=== PATIENT | male | born 1940 | race Caucasian/White ===

== ENCOUNTER 2018-06-22 07:45 | Outpatient (CLI) | payer MEDICARE, OTHER ==
--- NOTE | 2018-06-22 10:32 | XRAY Report ---
Reason: PAIN IN LEFT HIP, PAIN IN LEFT KNEE Procedure Date: 06/22/2018 Accession Number: [id number] / [id number] Procedure: XR - Knee 3 View LT CPT Code: FULL RESULT: EXAM: LEFT KNEE RADIOGRAPHY EXAM DATE: 06/22/2018 08:37 AM. CLINICAL HISTORY: Pain in left hip, pain in left knee. COMPARISON: None. TECHNIQUE: 2 views. FINDINGS: Bones: Normal. No fractures or bone lesions. Joints: Mild medial weightbearing compartment joint space narrowing. Soft Tissues: Vascular calcifications at the level of the canal. IMPRESSION: Peripheral arterial disease and mild degenerative changes. RADIA
--- NOTE | 2018-06-22 10:33 | XRAY Report ---
Reason: PAIN IN LEFT HIP, PAIN IN LEFT KNEE Procedure Date: 06/22/2018 Accession Number: [id number] / [id number] Procedure: XR - Hips 2V BILAT CPT Code: FULL RESULT: EXAM: BILATERAL HIP RADIOGRAPHY EXAM DATE: 06/22/2018 08:37 AM. CLINICAL HISTORY: Pain in left hip, pain in left knee. COMPARISON: None. TECHNIQUE: 2 views each. FINDINGS: Bones: Normal. No fractures or bone lesion. Right Hip: Status post right total hip arthroplasty without evidence of hardware failure. Left Hip: Moderate joint space narrowing. Soft Tissues: Vascular calcifications. Surgical clips projecting over the pelvis. IMPRESSION: At least moderate degenerative changes of the left femoral acetabular joint. RADIA
== END 2018-06-22 07:46 | disposition home or self-care (01) ==
LOC: DI 07:45
PROVIDERS: ATTEND Registered Nurse
DX: M16.12 Unilateral primary osteoarthritis, left hip (principal); M17.12 Unilateral primary osteoarthritis, left knee; I73.9 Peripheral vascular disease, unspecified; Z96.641 Presence of right artificial hip joint
CPT/HCPCS: 73521

== ENCOUNTER 2019-02-16 10:01 | Emergency (ER) | payer MEDICARE, OTHER ==
--- NOTE | 2019-02-16 11:18 | ED Physician Documentation ---
PD HPI SKIN - Stated complaint Stated Complaint: RASH - Chief complaint Chief Complaint: General - History obtained from History obtained from: Patient - History of Present Illness Timing - onset: How many days ago (9-10) Timing - duration: Days (9-10) Timing - details: Gradual onset, Still present Location: Chest, Back (started with thoracic back pain left side just after Thanksgiving and has increased steadily. Noted left chest pain past couple days and today having blistered patchy rash in the area.) Quality / character: Itchy, Painful, Burning, Vesicular Associated symptoms: Myalgias. No: Fever, Headache, N/V/D Contributing factors: No: Exposed to food, Exposed to soap / lotion, Recent illness Similar symptoms before: Has not had sx before Review of Systems Constitutional: reports: Myalgias. denies: Fever, Chills Nose: denies: Rhinorrhea / runny nose, Congestion Throat: denies: Sore throat Respiratory: denies: Cough GI: denies: Nausea, Vomiting, Diarrhea Musculoskeletal: reports: Back pain. denies: Neck pain Neurologic: denies: Altered mental status, Headache PD PAST MEDICAL HISTORY - Past Medical History Cardiovascular: Hypertension Respiratory: None Neuro: None Endocrine/Autoimmune: None - Present Medications Home Medications: Ambulatory Orders Medication Instructions Recorded Confirmed Amitriptyline [Elavil] 25 mg PO HS #30 tablet 02/16/19 Lidocaine Patch 5% [Lidoderm Patch] 1 patch TOP DAILY PRN #10 patch 02/16/19 Valacyclovir HCl [Valacyclovir] 1,000 mg PO TID #21 tablet 02/16/19 dexAMETHasone [Decadron] 4 mg PO DAILY #7 tablet 02/16/19 - Allergies Allergies/Adverse Reactions: Allergies Allergy/AdvReac Type Severity Reaction Status Date / Time No Known Drug Allergies Allergy Verified 02/16/19 10:11 - Living Situation Living Situation: reports: With spouse/s.o. Living Arrangement: reports: At home PD ED PE NORMAL - Vitals Vital signs reviewed: Yes - General General: Alert and oriented X 3, No acute distress, Well developed/nourished (d) - HEENT HEENT: Pharynx benign - Neck Neck: Supple, no meningeal sign, No adenopathy - Cardiac Cardiac: RRR, No murmur - Respiratory Respiratory: Clear bilaterally - Abdomen Abdomen: Soft, Non tender - Derm Derm: Normal color, Warm and dry, Other (left thoracic back at T5 level wrapping around to anterior chest just below nipple level, with skin tenderness, patchy vesicular rash, that demarcates in a band and stops at midline sternal. ) - Neuro Neuro: Alert and oriented X 3, No motor deficit, Normal speech Results - Vitals Vitals: Oxygen O2 Source Room air Departure - Departure Disposition: 01 Home, Self Care Clinical Impression: Shingles rash Qualifiers: Herpes zoster complications: without complications Qualified Code(s): B02.9 - Zoster without complications Condition: Stable Record reviewed to determine appropriate education?: Yes Instructions: ED Shingles Follow-Up: Nita Samayoa ARNP [Primary Care Provider] - Prescriptions: Amitriptyline [Elavil] 25 mg PO HS #30 tablet dexAMETHasone [Decadron] 4 mg PO DAILY #7 tablet Lidocaine Patch 5% [Lidoderm Patch] 1 patch TOP DAILY PRN #10 patch PRN Reason: pain Valacyclovir HCl [Valacyclovir] 1,000 mg PO TID #21 tablet Comments: You can use topical medication to help with the pain such as lidocaine patches or gel. Tylenol or ibuprofen if needed for pains. This looks like shingles and we will treat her with valacyclovir antiviral medications for a week and also Decadron steroid to decrease inflammation of the nerve for a week as well. Also take amitriptyline nightly for the next month to reduce the irritation of the nerve. You can discontinue use of this sooner if your pain is gone away during that time. Discharge Date/Time: 02/16/19 12:07
[2019-02-16] MEDS ORDERED: DEXAMETHASONE 10 MG/ML VIAL PO STA (11:50)
[2019-02-16] MEDS ORDERED: CHERRY SYRUP 10 ML UDC PO ONE (11:50)
[2019-02-16 12:06] VITALS: BP 115/65
== END 2019-02-16 12:07 | disposition home or self-care (01) ==
LOC: ED 10:01
DX: B02.9 Zoster without complications (principal); I10 Essential (primary) hypertension
CPT/HCPCS: 99284; A9270

== ENCOUNTER 2019-05-20 09:19 | Outpatient (CLI) | payer MEDICARE, OTHER ==
[2019-05-20 10:01] LABS: HB2 TOTAL 10.6 g/dL; HEMOGLOBIN A1C 0.3 g/dL; HEMOGLOBIN A1C % 4.7 % (4.6-6.2)
[2019-05-20 10:05] LABS: ALBUMIN 4.1 g/dL (3.2-5.5); BILIRUBIN,DIRECT 0.1 mg/dL (0.1-0.5); TOTAL PROTEIN 6.8 g/dL (6.7-8.2)
== END 2019-05-20 09:20 | disposition home or self-care (01) ==
LOC: LAB 09:19
PROVIDERS: ATTEND Registered Nurse
DX: R79.0 Abnormal level of blood mineral (principal); R73.09 Other abnormal glucose
CPT/HCPCS: 36415; 80076; 82947; 83036; 83540; 84466

== ENCOUNTER 2019-06-17 09:36 | Outpatient (CLI) | payer MEDICARE, OTHER | END 2019-06-17 09:37 | disposition home or self-care (01) | LOC: LAB 09:36 | PROVIDERS: ATTEND Registered Nurse | DX: R73.09 Other abnormal glucose (principal) | CPT/HCPCS: 36415; 82947 ==

== ENCOUNTER 2019-09-02 11:49 | Outpatient (CLI) | payer MEDICARE, OTHER ==
[2019-09-02 12:42] LABS: BASOPHILS % (AUTO) 0.4 %; EOSINOPHILS % (AUTO) 0.1 %; HGB - HEMOGLOBIN 7.8 g/dL (14.0-18.0); LYMPHOCYTES % (AUTO) 19.4 %; MEAN CORPUSCULAR HGB CONC 35.9 g/dL (32.0-36.0); MEAN CORPUSCULAR VOLUME 102.8 fL (80.0-94.0); MEAN PLATELET VOLUME 9.7 fL (7.4-11.4); MONOCYTES % (AUTO) 12.8 %; NEUTROPHILS % (AUTO) 66.5 %; PLT - PLATELET COUNT 260 10^3/uL (130-450); RED BLOOD COUNT 2.11 10^6/uL (4.70-6.10); WHITE BLOOD COUNT 8.5 x10^3/uL (4.8-10.8)
[2019-09-02 12:49] LABS: ABNORMAL LYMPHS % (MANUAL) 0 %
[2019-09-02 13:00] LABS: ALBUMIN 3.9 g/dL (3.2-5.5); ALBUMIN/GLOBULIN RATIO 1.2 (1.0-2.2); CALCIUM 9.2 mg/dL (8.5-10.3); CREATININE 0.9 mg/dL (0.6-1.2); CRP - C-REACTIVE PROTEIN 6.1 mg/dL (0-1.0); TOTAL PROTEIN 7.2 g/dL (6.7-8.2)
--- NOTE | 2019-09-02 13:12 | XRAY Report ---
PROCEDURE: Chest 2 View X-Ray INDICATIONS: LAB DRAW, FEVER, UNSPECIFIED TECHNIQUE: 2 view(s) of the chest. COMPARISON: 01/18/2016. FINDINGS: Surgical changes and devices: None. Lungs and pleura: No pleural effusions or pneumothorax. Lungs are clear. Mediastinum: Mediastinal contours are normal. Heart size is normal. Bones and chest wall: No suspicious bony abnormalities. Soft tissues appear unremarkable. IMPRESSION: No acute cardiopulmonary pathology. Reviewed by: Kuldip Garcia MD on 09/02/2019 1:11 PM PDT Approved by: Kuldip Garcia MD on 09/02/2019 1:11 PM PDT Station ID: [id number]
[2019-09-02 14:39] LABS: BAND NEUTROPHILS % (MANUAL) 3 %; DIFFERENTIAL COMMENT MANUAL DIFFERENTIAL; LYMPHOCYTES # (MANUAL) 1.7 10^3/uL (1.5-3.5); LYMPHOCYTES % (MANUAL) 12 %; MONOCYTES # (MANUAL) 1.3 10^3/uL (0.0-1.0); PLATELET MORPHOLOGY RARE GIANT PLATELETS (NORMAL); RBC MORPHOLOGY (MULTIPLE) 2+ ANISOCYTOSIS (NORMAL)
[2019-09-02 18:36] LABS: RHEUMATOID FACTOR NEGATIVE (Negative)
[2019-09-04 12:34] LABS: ANA SCREEN NEGATIVE (NEGATIVE)
== END 2019-09-02 11:50 | disposition home or self-care (01) ==
LOC: LAB 11:49 → DI 11:50
PROVIDERS: ATTEND Registered Nurse
DX: R50.9 Fever, unspecified (principal); I10 Essential (primary) hypertension; R51 Headache
CPT/HCPCS: 36415; 71046; 80053; 82550; 83615; 85025; 85651; 86038; 86140; 86430; 87040

== ENCOUNTER 2019-09-06 15:00 | Outpatient (CLI) | payer MEDICARE, OTHER | END 2019-09-06 15:01 | disposition home or self-care (01) | LOC: LAB 15:00 | PROVIDERS: ATTEND Registered Nurse | DX: Z01.818 Encounter for other preprocedural examination (principal); M31.6 Other giant cell arteritis; Z20.828 Contact with and (suspected) exposure to other viral communicable diseases | CPT/HCPCS: 81025; 81599; 86850; 86900; 86901 ==

== ENCOUNTER 2019-09-09 06:59 | Day surgery (SDC) | payer MEDICARE, OTHER ==
[2019-09-09] MEDS ORDERED: CEFAZOLIN SODIUM IN 0.9 % NACL 2 GM/100 ML BAG IV ONE (07:16)
[2019-09-09] MEDS ORDERED: LACTATED RINGERS 1,000 ML IV ONE (07:31)
--- NOTE | 2019-09-09 07:32 | ANESTHESIA ---
Pre-Anesthesia VS, & Labs - Diagnosis temporal arteritis - Procedure temporaL artery biopsy Vital Signs: Temp Pulse Resp BP Pulse Ox 36.1 C L 78 18 143/68 H 99 09/09/19 07:10 09/09/19 07:10 09/09/19 07:10 09/09/19 07:10 09/09/19 07:10 Height 6 ft Weight (kg) 69 kg Body Mass Index 27.6 - NPO >8 hours - Lab Results Current Lab Results: Laboratory Tests 09/09/19 07:26: POC Whole Bld Glucose 80 Home Medications and Allergies Home Medications: Ambulatory Orders Amlodipine Besylate 5 mg PO DAILY 09/06/19 Atorvastatin Calcium 10 mg PO QPM 09/06/19 Lisinopril [Zestril] 40 mg PO DAILY 09/06/19 Metformin HCl [Glucophage Xr] 500 mg PO BID 09/06/19 predniSONE [Prednisone] 1 mg PO DAILY 09/06/19 Cefuroxime Axetil [Cefuroxime] 500 mg PO BID 09/09/19 Amlodipine Besylate 5 mg PO DAILY 09/06/19 Atorvastatin Calcium 10 mg PO QPM 09/06/19 Lisinopril [Zestril] 40 mg PO DAILY 09/06/19 Metformin HCl [Glucophage Xr] 500 mg PO BID 09/06/19 predniSONE [Prednisone] 1 mg PO DAILY 09/06/19 Cefuroxime Axetil [Cefuroxime] 500 mg PO BID 09/09/19 Allergies/Adverse Reactions: Allergies Allergy/AdvReac Type Severity Reaction Status Date / Time No Known Drug Allergies Allergy Verified 07/15/19 11:07 Anes History & Medical History - Anesthetic History Anesthesia Complications: reports: No previous complications Family history of Anesthesia Complications: Denies Family history of Malignant Hyperthermia: Denies - Medical History Cardiovascular: reports: Hypertension, Arrhythmia Pulmonary: reports: None Gastrointestinal: reports: None Urinary: reports: None, Other Neuro: reports: None Musculoskeletal: reports: None Endocrine/Autoimmune: reports: Type 2 diabetes Blood Disorders: reports: None Skin: reports: Eczema, Other Smoking Status: Never smoker Psychosocial: reports: No issues indicated - Surgical History General: Colonoscopy Urologic: Prostatic surgery Orthopedic: Hip replacement, Other Exam General: Alert, Oriented x3, Cooperative, No acute distress Dental: WNL Mouth Openin Fingerbreadth Mallampati classification: II Thyromental Distance: 4-6 cm Respiratory: Lungs clear, Normal breath sounds, No respiratory distress, No accessory muscle use Cardiovascular: Regular rate, Normal S1, Normal S2, No murmurs Abdomen: Normal bowel sounds, Soft, No tenderness, No hepatospenomegaly, No masses Extremities: No clubbing, No cyanosis, No edema, Normal pulses, No tenderness/swelling Neurological: Normal gait, Normal speech, Strength at 5/5 X4 ext, Normal tone, Sensation intact, Cranial nerves 3-12 NL, Reflexes 2+ Mental/Cognitive Status: Alert/Oriented X3, Normal for patient Cognitive Status: Within normal limits Plan Anesthesia Type: MAC Consent for Procedure(s) Verified and Reviewed: Yes Code Status: Attempt Resuscitation ASA classification: 2-Mild systemic disease Is this case an emergency?: No
[2019-09-09] MEDS ORDERED: BACITRACIN ZINC OINT 1 PACKET TOP ONE ×2 (08:51→09:15)
[2019-09-09] MEDS ORDERED: BUPIVACAINE 0.5% PF 30 ML VIAL ONE (08:51)
[2019-09-09] MEDS ORDERED: LIDOCAINE 1%-EPI 1:100000 20 ML MDV ONE (08:51)
[2019-09-09] MEDS ORDERED: LIDOCAINE 1%-EPI 1:100000 30 ML MDV SUBQ ONE (09:15)
[2019-09-09] MEDS ORDERED: BUPIVACAINE 0.5%-EPI 1:200000 PF 30 ML VIAL SUBQ ONE (09:15)
[2019-09-09] MEDS ORDERED: MIDAZOLAM 2 MG/2 ML VIAL IVP ONE (09:22)
[2019-09-09] MEDS ORDERED: LIDOCAINE-MPF 2% 5 ML VIAL IM ONE (09:22)
[2019-09-09] MEDS ORDERED: PROPOFOL 200 MG/20 ML VIAL IVP ONE (09:22)
--- NOTE | 2019-09-09 09:56 | OPERATIVE REPORT ---
Operative Report - General Procedure Date: 09/09/19 Planned Procedure: Left temporal artery biopsy Pre-Op Diagnosis: Temporal headache and elevated sedimentation rate Procedure Performed: Left temporal artery biopsy Post Op Diagnosis: Temporal headache and elevated sedimentation rate - Procedure Note Primary Surgeon: Lisa Anesthesia Provider: PRINCESS Smith Anesthesia Technique: Local, MAC Pathology: Segment of left temporal artery to pathology in formalin Estimated Blood Loss (mL): 5 Findings: Thickened artery with surrounding inflammatory reaction Complications: None apparent - Other Other Information/Narrative: After obtaining informed consent, the patient is brought to the operating room and placed in the supine position on the examination table. Following sedation with monitored anesthesia care, the left temporal region was prepped and draped in the standard surgical fashion. A timeout was held per scope protocol. All elements of the surgical safety checklist were followed before, during, and after the procedure. We began the procedure by mapping the location of the temporal artery using palpation and as well as the Doppler ultrasound device. We then anesthetized the skin on either side of the artery with a mixture of local anesthetics. An incision was created directly over the artery and carried down to the visible surface of the vessel. The vessel was then carefully dissected free from surrounding tissue. It was notably thickened and enlarged with an inflammatory reaction involving the surrounding tissue. It was clipped proximally and distal ly and a 1.5 cm segment of the artery removed. The segment was passed from the table. The wound was checked for hemostasis. It was irrigated with saline solution and then closed with Monocryl sutures. All sponge, needle, and instrument counts were correct at the conclusion of the case. The patient was allowed awaken from anesthesia without difficulty and taken to the postanesthesia care unit in good condition.
[2019-09-09 10:34] VITALS: BP 120/51
== END 2019-09-09 07:00 | disposition home or self-care (01) ==
LOC: SDS 06:59
PROVIDERS: ATTEND Surgery
PROC: 03BT0ZX Excision of Left Temporal Artery, Open Approach, Diagnostic (ICD-10-PCS; principal; 2019-09-09 08:45)
DX: R51 Headache (principal); H53.9 Unspecified visual disturbance; R53.83 Other fatigue; R63.4 Abnormal weight loss; Z68.26 Body mass index [BMI] 26.0-26.9, adult; D46.9 Myelodysplastic syndrome, unspecified; I10 Essential (primary) hypertension; E11.9 Type 2 diabetes mellitus without complications; H91.90 Unspecified hearing loss, unspecified ear; H25.10 Age-related nuclear cataract, unspecified eye; H52.209 Unspecified astigmatism, unspecified eye; E78.5 Hyperlipidemia, unspecified
CPT/HCPCS: 37609; A9270; J0690; J7120

== ENCOUNTER 2019-12-16 09:26 | Outpatient (CLI) | payer MEDICARE, OTHER ==
[2019-12-16 10:49] LABS: CHOL/HDL RATIO 3.5 (<5.0); CHOLESTEROL 150 mg/dL; HDL CHOLESTEROL 43 mg/dL; LDL CHOLESTEROL,CALCULATED 56 mg/dL; LDL/HDL RATIO 1.3 (<3.6); VLDL CHOLESTEROL 51 mg/dL
[2019-12-16 14:33] LABS: HEMOGLOBIN A1c% 4.6 % (4.27-6.07)
== END 2019-12-16 09:27 | disposition home or self-care (01) ==
LOC: LAB 09:26
PROVIDERS: ATTEND Internal Medicine Rheumatology
DX: E11.9 Type 2 diabetes mellitus without complications (principal); E78.00 Pure hypercholesterolemia, unspecified; D46.9 Myelodysplastic syndrome, unspecified; Z85.46 Personal history of malignant neoplasm of prostate
CPT/HCPCS: 80061; 83036; 83721; 84153; 85651; 86140

== ENCOUNTER 2020-05-04 07:00 | Outpatient (CLI) | payer MEDICARE, OTHER | END 2020-05-04 23:59 | disposition home or self-care (01) | LOC: LAB 07:00 | PROVIDERS: ATTEND Internal Medicine Rheumatology | DX: M35.3 Polymyalgia rheumatica (principal) | CPT/HCPCS: 80048; 85651; 86140 ==

== ENCOUNTER 2020-06-18 08:49 | Outpatient (CLI) | payer MEDICARE, OTHER ==
--- NOTE | 2020-06-18 09:14 | XRAY Report ---
PROCEDURE: Chest 2 View X-Ray INDICATIONS: FEVER, UNSPECIFIED TECHNIQUE: 2 view(s) of the chest. COMPARISON: 09/02/2019. FINDINGS: Surgical changes and devices: None. Lungs and pleura: No pleural effusions or pneumothorax. Increased bronchovascular markings in bilate ral hilar region are seen with ill-defined increased opacity in right infrahilar region concerning fo r developing infiltrate. Mediastinum: Mediastinal contours are normal. Heart size is normal. Bones and chest wall: No suspicious bony abnormalities. Soft tissues appear unremarkable. IMPRESSION: Finding is concerning for developing right lower lobe infiltrate. Clinical correlation a nd follow-up is recommended. Reviewed by: Kuldip Garcia MD on 06/18/2020 9:12 AM PDT Approved by: Kuldip Garcia MD on 06/18/2020 9:12 AM PDT Station ID: [id number]
[2020-06-18 15:16] LABS: BASOPHILS % (AUTO) 0.6 %; EOSINOPHILS % (AUTO) 0.1 %; HCT - HEMATOCRIT 31.2 % (42.0-52.0); HGB - HEMOGLOBIN 10.4 g/dL (14.0-18.0); LYMPHOCYTES # (AUTO) 1.3 10^3/uL (1.5-3.5); LYMPHOCYTES % (AUTO) 17.7 %; MEAN CORPUSCULAR HEMOGLOBIN 35.6 pg (27.0-31.0); MEAN CORPUSCULAR HGB CONC 33.3 g/dL (32.0-36.0); MEAN CORPUSCULAR VOLUME 106.8 fL (80.0-94.0); MEAN PLATELET VOLUME 10.1 fL (7.4-11.4); MONOCYTES # (AUTO) 1.2 10^3/uL (0.0-1.0); MONOCYTES % (AUTO) 16.2 %; NEUTROPHILS # (AUTO) 4.7 10^3/uL (1.5-6.6); PLT - PLATELET COUNT 202 10^3/uL (130-450); RED BLOOD COUNT 2.92 10^6/uL (4.70-6.10); RED CELL DISTRIBUTION WIDTH 16.4 % (12.0-15.0); WHITE BLOOD COUNT 7.2 x10^3/uL (4.8-10.8)
[2020-06-18 15:17] LABS: GLUCOSE, URINE (UA) NEGATIVE (NEGATIVE); KETONES,URINE (UA) TRACE mg/dL (NEGATIVE); LEUKOCYTE ESTERASE, URINE MODERATE (NEGATIVE); NITRITE,URINE NEGATIVE (NEGATIVE); OCCULT BLOOD,URINE NEGATIVE (NEGATIVE); PH,URINE 5.5 PH (5.0-7.5); PROTEIN,URINE TRACE mg/dL (NEGATIVE); UROBILINOGEN,URINE 1 (NORMAL) E.U./dL (NORMAL)
[2020-06-18 15:34] LABS: BILIRUBIN,URINE NEGATIVE (NEGATIVE); CLARITY,URINE HAZY (CLEAR); ICTOTEST,URINE NEGATIVE
[2020-06-18 15:50] LABS: ALBUMIN 3.7 g/dL (3.2-5.5); ALBUMIN/GLOBULIN RATIO 1.2 (1.0-2.2); CALCIUM 9.3 mg/dL (8.5-10.3); CREATININE 1.1 mg/dL (0.6-1.2); CRP - C-REACTIVE PROTEIN 10.4 mg/dL (0-1.0); POTASSIUM 3.8 mmol/L (3.5-5.0); TOTAL PROTEIN 6.9 g/dL (6.7-8.2)
[2020-06-18 16:01] LABS: AMORPHOUS SEDIMENT,UR Marked /LPF; BACTERIA,URINE Few /HPF (None Seen); CASTS, URINE 6-10 Hyaline Casts /LPF; CRYSTALS,URINE 6-10 Calcium Oxalate /LPF; MUCUS,URINE Few Strands; RBC,URINE 0-5 /HPF (0-5); SQUAMOUS EPITHELIAL CELL,UR RARE Squamous (<= Few); WBC CLUMPS,URINE PRESENT; WBC,URINE >25 /HPF (0-3)
== END 2020-06-18 08:50 | disposition home or self-care (01) ==
LOC: DI.S 08:49
PROVIDERS: ATTEND Registered Nurse
DX: R91.8 Other nonspecific abnormal finding of lung field (principal); R50.9 Fever, unspecified; D46.9 Myelodysplastic syndrome, unspecified; E11.9 Type 2 diabetes mellitus without complications
CPT/HCPCS: 36415; 80053; 81001; 82728; 82985; 85025; 85651; 86140; 87077; 87086; 87181

== ENCOUNTER 2020-10-19 09:39 | Outpatient (CLI) | payer MEDICARE, OTHER ==
--- NOTE | 2020-10-19 10:46 | ONCOLOGY/HEMATOLOGY VISIT ---
HEME/ONC PROGRESS NOTE: cc; Nita Samayoa; MARIA L HEME/ONCOLOGY HISTORY: 1. Myelodysplastic syndrome with refractory anemia. A. Bone marrow biopsy 07/2018, 55% cellularity. EPO level 75 and 07/2018. B. Aranesp initiated due to fatigue and hemoglobin 9.2 g since 04/2019. 2. History of prostate cancer in 1999, status post radical retropubic prostatectomy. ASSESSMENT/PLAN: 1. Myelodysplastic syndrome with refractory anemia: a. Tolerating Aranesp dosing of 200 mcg every 2 weeks well without hypertension, dyspnea or VTE. Goal is to minimize transfusion requriements, last PRBCs 08/2019. b. Proceed with Aranesp 200 mcg SQ as scheduled today to continue every 2 weeks; CBC every 4 weeks. Office visit every 12 weeks. 2. Temporal arteritis: Tapering prednisone per rheumatology - off now. 3. Iron overload: Due to transfusions. Ferritin continues declining nicely; 502 today. Recheck 3 months. 4. Bilateral lower extremity edema. Encouraged him to use pressure stocking during the daytime HISTORY OF CURRENT ILLNESS/REVIEW OF SYSTEMS: Malik He is here for ongoing care regarding above issues. Overall feeling quite well. In fact over the weekend he had entertainment with his children and many grandchildren. Not feeling exhausted After the libertarian. Currently no longer taking prednisone. Had interval new right lower lobe pneumonia treated with antibiotics. SOCIAL HISTORY: Lives with on [facility]. is retired RN. PHYSICAL EXAM: Weight 91 kg. BP 127/63. HEENT; no jaundice, Lung; clear to auscultation and percussion. No signs of pleural effusion by percussion. Heart; regular rhythm no murmur Abdomen; soft nontender, no hepatosplenomegaly, no signs of ascites. Central obesity noted. Extremity; no clubbing, + b/L LE peripheral edema, Skin. No new rash. No petechia or purpura. Lymph nodes: no palpable adenopathy in the cervical, supeerclavicular fossa, or axilla areas. Clinical Data: Allergies No Known Drug Allergies Allergy (Verified 07/27/20 11:22) Home Medications Amlodipine Besylate 5 mg PO DAILY 09/06/19 [History Last Taken 09/08/19] Atorvastatin Calcium 10 mg PO QPM 09/06/19 [History Last Taken 09/08/19] Lisinopril [Zestril] 40 mg PO DAILY 09/06/19 [History Last Taken 09/08/19] Metformin HCl [Glucophage Xr] 500 mg PO BID 09/06/19 [History Last Taken 09/08/19] predniSONE [Prednisone] 25 mg PO DAILY 09/06/19 [History Last Taken 09/08/19] Recent Lab Results 10/19/20 10:09: C-Reactive Protein 1.6 H
== END 2020-10-19 09:40 | disposition home or self-care (01) ==
LOC: LAB 09:39
PROVIDERS: ATTEND Internal Medicine Rheumatology
DX: M35.3 Polymyalgia rheumatica (principal); Z79.52 Long term (current) use of systemic steroids
CPT/HCPCS: 36415; 80048; 85651; 86140

== ENCOUNTER 2020-11-19 08:57 | Outpatient (CLI) | payer MEDICARE, OTHER | END 2020-11-19 08:58 | disposition home or self-care (01) | LOC: LAB.S 08:57 | PROVIDERS: ATTEND Registered Nurse | DX: M35.3 Polymyalgia rheumatica (principal) | CPT/HCPCS: 36415; 85651; 86140 ==

== ENCOUNTER 2020-12-24 07:08 | Outpatient (CLI) | payer MEDICARE, OTHER ==
[2020-12-24 15:14] LABS: CHOL/HDL RATIO 3.1 (<5.0); CHOLESTEROL 113 mg/dL; HDL CHOLESTEROL 36 mg/dL; LDL CHOLESTEROL,CALCULATED 44 mg/dL; LDL/HDL RATIO 1.2 (<3.6); TRIGLYCERIDES 166 mg/dL; VLDL CHOLESTEROL 33 mg/dL
[2020-12-24 15:20] LABS: CREATININE,URINE 65.5 mg/dL; MICROALBUM/CREATININE RATIO,UR 38.2 ug/mg (<30.0); MICROALBUMIN,URINE 2.5 mg/dL (0-300.0)
== END 2020-12-24 07:09 | disposition home or self-care (01) ==
LOC: LAB.S 07:08
PROVIDERS: ATTEND Registered Nurse
DX: E11.9 Type 2 diabetes mellitus without complications (principal); Z85.46 Personal history of malignant neoplasm of prostate
CPT/HCPCS: 36415; 80061; 82043; 82570; 82985; 83721; 84153

== ENCOUNTER 2022-01-03 09:26 | Outpatient (CLI) | payer MEDICARE, OTHER ==
[2022-01-03 15:06] LABS: CHOL/HDL RATIO 3.8 (<5.0); CHOLESTEROL 137 mg/dL; HDL CHOLESTEROL 36 mg/dL; LDL CHOLESTEROL,CALCULATED 49 mg/dL; LDL/HDL RATIO 1.4 (<3.6); TRIGLYCERIDES 258 mg/dL; VLDL CHOLESTEROL 52 mg/dL
[2022-01-03 15:34] LABS: MICROALBUM/CREATININE RATIO,UR 39.1 ug/mg (<30.0); MICROALBUMIN,URINE 0.9 mg/dL (0-300.0)
[2022-01-06 11:09] LABS: HCV AB 1.1 s/co ratio (0.0-0.9); HCV IU/ML HCV Not Detected IU/mL (.)
== END 2022-01-03 09:27 | disposition home or self-care (01) ==
LOC: LAB.S 09:26
PROVIDERS: ATTEND Registered Nurse
DX: E11.9 Type 2 diabetes mellitus without complications (principal); Z11.59 Encounter for screening for other viral diseases; Z85.46 Personal history of malignant neoplasm of prostate
CPT/HCPCS: 36415; 80061; 82043; 82570; 82985; 83721; 84153; 86803; 87522

== ENCOUNTER 2022-10-31 07:46 | Outpatient (CLI) | payer MEDICARE, OTHER ==
[2022-10-31 08:16] LABS: CREATININE,URINE 57.9 mg/dL; MICROALBUM/CREATININE RATIO,UR 122.6 ug/mg (<30.0); MICROALBUMIN,URINE 7.1 mg/dL
[2022-10-31 08:19] LABS: CHOL/HDL RATIO 3.5 (<5.0); CHOLESTEROL 123 mg/dL; HDL CHOLESTEROL 35 mg/dL; LDL CHOLESTEROL,CALCULATED 47 mg/dL; LDL/HDL RATIO 1.3 (<3.6); TRIGLYCERIDES 204 mg/dL (48-352); VLDL CHOLESTEROL 41 mg/dL
[2022-10-31 09:43] LABS: ESTIMATED AVERAGE GLUCOSE 126 mg/dL (70-100)
== END 2022-10-31 07:47 | disposition home or self-care (01) ==
LOC: LAB 07:46
PROVIDERS: ATTEND Registered Nurse
DX: E11.9 Type 2 diabetes mellitus without complications (principal); Z85.46 Personal history of malignant neoplasm of prostate
CPT/HCPCS: 36415; 80061; 82043; 82570; 82985; 83036; 83721; 84153

== ENCOUNTER 2023-05-22 08:34 | Outpatient (CLI) | payer MEDICARE, OTHER ==
[2023-05-22 09:05] LABS: CREATININE,URINE 50.1 mg/dL; MICROALBUM/CREATININE RATIO,UR 67.9 ug/mg (<30.0); MICROALBUMIN,URINE 3.4 mg/dL
[2023-05-22 09:11] LABS: ESTIMATED AVERAGE GLUCOSE 114 mg/dL (70-100); HEMOGLOBIN A1c% 5.6 % (4.27-6.07)
== END 2023-05-22 08:35 | disposition home or self-care (01) ==
LOC: LAB 08:34
PROVIDERS: ATTEND Registered Nurse
DX: E11.9 Type 2 diabetes mellitus without complications (principal)
CPT/HCPCS: 36415; 82043; 82570; 83036

== ENCOUNTER 2023-09-22 07:28 | Outpatient (CLI) | payer MEDICARE, OTHER ==
[2023-09-22 16:02] LABS: BUN - BLOOD UREA NITROGEN 14 mg/dL (6-20); CALCIUM 9.9 mg/dL (8.5-10.3); CARBON DIOXIDE - CO2 29 mmol/L (21-32); CHLORIDE 105 mmol/L (101-111); CHOL/HDL RATIO 3.4 (<5.0); CHOLESTEROL 131 mg/dL; CREATININE 0.7 mg/dL (0.6-1.3); GFR - MDRD 108 (>89); GLUCOSE 167 mg/dL (74-104); HDL CHOLESTEROL 39 mg/dL; LDL CHOLESTEROL,CALCULATED 43 mg/dL; LDL/HDL RATIO 1.1 (<3.6); POTASSIUM 4.3 mmol/L (3.5-4.5); SODIUM 138 mmol/L (135-145); TRIGLYCERIDES 243 mg/dL; VLDL CHOLESTEROL 49 mg/dL
[2023-09-22 16:47] LABS: CREATININE,URINE 62.6 mg/dL; MICROALBUM/CREATININE RATIO,UR 190.1 ug/mg (<30.0); MICROALBUMIN,URINE 11.9 mg/dL
[2023-09-22 20:36] LABS: ESTIMATED AVERAGE GLUCOSE 100 mg/dL (70-100); HEMOGLOBIN A1c% 5.1 % (4.27-6.07)
== END 2023-09-22 07:29 | disposition home or self-care (01) ==
LOC: LAB.S 07:28
PROVIDERS: ATTEND Registered Nurse
DX: I10 Essential (primary) hypertension (principal); E11.9 Type 2 diabetes mellitus without complications; Z85.46 Personal history of malignant neoplasm of prostate
CPT/HCPCS: 36415; 80048; 80061; 82043; 82570; 82985; 83036; 83721; 84153

== ENCOUNTER 2023-10-28 08:00 | Outpatient (CLI) | payer MEDICARE, OTHER ==
[2023-10-28 19:19] LABS: BILIRUBIN,URINE NEGATIVE (NEGATIVE); GLUCOSE, URINE (UA) NEGATIVE (NEGATIVE); KETONES,URINE (UA) NEGATIVE (NEGATIVE); LEUKOCYTE ESTERASE, URINE MODERATE (NEGATIVE); NITRITE,URINE NEGATIVE (NEGATIVE); OCCULT BLOOD,URINE MODERATE (NEGATIVE); PH,URINE 6.5 PH (5.0-7.5); PROTEIN,URINE TRACE mg/dL (NEGATIVE); UROBILINOGEN,URINE 4 E.U./dL (NORMAL)
[2023-10-28 19:42] LABS: BACTERIA,URINE Few /HPF (None Seen); CLARITY,URINE HAZY (CLEAR); SQUAMOUS EPITHELIAL CELL,UR RARE Squamous (<= Few); WBC CLUMPS,URINE PRESENT; WBC,URINE >25 /HPF (0-3)
[2023-10-28 19:43] LABS: CRYSTALS,URINE 0-2 Calcium Oxalate /LPF
--- NOTE | 2023-10-29 02:44 | XRAY Report ---
PROCEDURE: Abdomen 1 V INDICATIONS: HEMATURIA TECHNIQUE: One view of the abdomen acquired. COMPARISON: None. FINDINGS: Surgical changes and devices: None. Bowel: Bowel gas pattern is normal. Soft tissues: There is a probable junction middle pole/lower pole stone of the left kidney measuring 1.0 x 1.4 cm. There is a left sided calcifications lateral to the psoas muscle measuring 0.9 cm, whic h can potentially represent a ureteral stone. This is not definite. Visualized solid organ contours appear normal in size. Bones: No suspicious bony lesions. IMPRESSION: 1. There is a probable 1.0 x 1.4 cm left renal stone. 2. Possible 0.9 cm left ureteral stone. Recommend CT KUB. Reviewed by: Marvin Gorman MD on 10/29/2023 2:43 AM PDT Approved by: Marvin Gorman MD on 10/29/2023 2:43 AM PDT Station ID: [id number]
== END 2023-10-28 23:59 | disposition home or self-care (01) ==
LOC: DI.S 08:00
PROVIDERS: ATTEND Emergency Medicine
DX: R31.9 Hematuria, unspecified (principal)
CPT/HCPCS: 81001; 87077; 87086; 87181

== ENCOUNTER 2023-10-30 07:05 | Outpatient (CLI) | payer MEDICARE, OTHER ==
[2023-10-30 15:24] LABS: BASOPHILS # (AUTO) 0.1 10^3/uL (0.0-0.1); BASOPHILS % (AUTO) 0.8 %; EOSINOPHILS # (AUTO) 0.1 10^3/uL (0.0-0.7); EOSINOPHILS % (AUTO) 1.7 %; HCT - HEMATOCRIT 37.5 % (42.0-52.0); HGB - HEMOGLOBIN 12.5 g/dL (14.0-18.0); LYMPHOCYTES # (AUTO) 1.2 10^3/uL (1.5-3.5); LYMPHOCYTES % (AUTO) 17.9 %; MEAN CORPUSCULAR HEMOGLOBIN 33.2 pg (27.0-31.0); MEAN CORPUSCULAR HGB CONC 33.3 g/dL (32.0-36.0); MEAN CORPUSCULAR VOLUME 99.7 fL (80.0-94.0); MEAN PLATELET VOLUME 10.6 fL (7.4-11.4); MONOCYTES # (AUTO) 0.8 10^3/uL (0.0-1.0); MONOCYTES % (AUTO) 12.1 %; NEUTROPHILS # (AUTO) 4.4 10^3/uL (1.5-6.6); PLT - PLATELET COUNT 164 10^3/uL (130-450); RED BLOOD COUNT 3.76 10^6/uL (4.70-6.10); RED CELL DISTRIBUTION WIDTH 14.6 % (12.0-15.0); WHITE BLOOD COUNT 6.5 x10^3/uL (4.8-10.8)
[2023-10-30 15:29] LABS: CALCIUM 9.9 mg/dL (8.5-10.3); CREATININE 0.8 mg/dL (0.6-1.3); POTASSIUM 4.5 mmol/L (3.5-4.5)
== END 2023-10-30 07:06 | disposition home or self-care (01) ==
LOC: LAB.S 07:05
PROVIDERS: ATTEND Emergency Medicine
DX: R31.9 Hematuria, unspecified (principal)
CPT/HCPCS: 36415; 80048; 85025

== ENCOUNTER 2023-11-21 08:03 | Outpatient (CLI) | payer MEDICARE, OTHER ==
--- NOTE | 2023-11-21 15:21 | CT Report ---
PROCEDURE: Abdomen/Pelvis WO INDICATIONS: KIDNEY STONE, URINARY TRACT INFECTION TECHNIQUE: A CT scan of the abdomen and pelvis was performed without the use of intravenous contrast. Images we re recorded and evaluated at appropriate window settings. Reformats: coronal and sagittal. For radiat ion dose reduction, the following was used: automated exposure control, adjustment of mA and/or kV ac cording to patient size. COMPARISON: None. FINDINGS: Image quality: Diagnostic. Evaluation of the visceral organs is limited due to the lack of intravenou s contrast. Streak artifact from right total hip arthroplasty mildly limits evaluation. Lower chest: No suspicious basilar pulmonary nodule or consolidation. No pleural effusion. No hiatal hernia. Liver: No contour-deforming mass. Gallbladder: No radiopaque stones or wall thickening. Biliary tree: No intrahepatic or extrahepatic dilation, accounting for age. Spleen: No splenomegaly. Pancreas: No pancreatic ductal dilation. Adrenals: No adrenal nodule. Kidneys and ureters: No hydronephrosis bilaterally. Right-sided tiny nephrolith measuring 3 mm (2/32, 4/90). Left interpolar nonobstructive nephrolith measuring 9 x 8 mm (2/30).. No contour-deforming ma ss. Mild symmetric bilateral perinephric fat stranding. Left upper pole simple cyst. Additional subce ntimeter bilateral cortical hypodensities are too small to characterize, statistically cysts. Stomach, bowel and peritoneum: No gastric or small bowel dilation. No abnormal wall thickening. No pa thologic free fluid. Normal appendix (4/49). Above-average colonic stool burden, notably in the cecum . Calcified nodule in the mid anterior peritoneum, likely a remote torsed epiploic appendage (2/43). Lymph nodes: No central or retroperitoneal adenopathy. Surgical clips from prior bilateral lymph node dissection. Vessels: No infrarenal aortic aneurysm. Moderate calcification of the thoracic aorta and iliac vessel s. Reproductive organs: Prostatectomy. Bladder: Bladder wall thickness is normal, accounting for underdistention. No calcified bladder stone s. Pelvic lymph nodes: No adenopathy by size criteria. Bones: No aggressive osseous abnormality. Right total hip arthroplasty. No acute fractures. Chronic a ppearing mild wedging at L3 with associated Schmorl's node at the superior endplate and no significan t osseous retropulsion. Other: Tiny fat-containing umbilical hernia. Small bilateral fat-containing inguinal hernias IMPRESSION: 1.No hydronephrosis or obstructing renal stone. 2.Right-sided nephrolith measuring 3 mm and left-sided nephrolith measuring 9 x 8 mm. 3.Above-average colonic stool burden, notably in the cecum, suggestive of constipation. Reviewed by: Faye Cheney MD on 11/21/2023 3:19 PM PDT Approved by: Faye Cheney MD on 11/21/2023 3:19 PM PDT Station ID: [id number]
== END 2023-11-21 08:04 | disposition home or self-care (01) ==
LOC: DI 08:03
PROVIDERS: ATTEND Emergency Medicine
DX: N20.0 Calculus of kidney (principal); N39.0 Urinary tract infection, site not specified